=== PATIENT | male | born 1980 | race Caucasian/White ===

== ENCOUNTER 2016-06-09 14:40 | Emergency (ER) | payer SELFPAY ==
[~2016-06-09] VITALS: Ht 177.8 cm; Wt 98.7 kg
[2016-06-09] MEDS ORDERED: LITHIUM CARBON300 MG PO (15:44)
[2016-06-09] MEDS ORDERED: TRAMADOL HCL50 MG PO (16:00)
[2016-06-09] MEDS ORDERED: FLEXERIL5 MG PO (16:00)
[2016-06-09] MEDS ORDERED: NAPROSYN500 MG PO (16:00)
[2016-06-09 16:09] VITALS: BP 159/102
== END 2016-06-09 16:17 | disposition home or self-care (01) ==
LOC: EME 14:40
DX: M54.31 Sciatica, right side (principal); I10 Essential (primary) hypertension; Z72.0 Tobacco use
CPT/HCPCS: 99281; 99284

== ENCOUNTER 2016-07-01 23:07 | Emergency (ER) | payer SELFPAY ==
[~2016-07-01] VITALS: Ht 177.8 cm; Wt 94.6 kg
[~2016-07-01 23:07] MED LIST: FLEXERIL5 MG PO; LITHIUM CARBON300 MG PO; NAPROSYN500 MG PO; TRAMADOL HCL50 MG PO
[2016-07-01 23:09] VITALS: BP 143/92
[2016-07-02] MEDS ORDERED: BACTRIM,SEPT1 TABLET PO (00:04)
[2016-07-02] MEDS ORDERED: KEFLEX500 MG PO (00:04)
== END 2016-07-02 00:16 | disposition home or self-care (01) ==
LOC: EME 23:07
DX: L02.415 Cutaneous abscess of right lower limb (principal); F17.200 Nicotine dependence, unspecified, uncomplicated
CPT/HCPCS: 99281; 99284